=== PATIENT | female | born 1985 | race African-American/Black ===

== ENCOUNTER 2018-03-24 10:27 | Emergency (ER) | payer OTHER ==
[~2018-03-24] VITALS: Ht 154.9 cm; Wt 59.0 kg
[2018-03-24] MEDS ORDERED: NORVASC5 MG PO (10:41)
[2018-03-24] MEDS ORDERED: HYDRALAZINE 2525 M1 PO (10:41)
[2018-03-24 12:41] VITALS: BP 133/94
== END 2018-03-24 12:50 | disposition home or self-care (01) ==
LOC: M.ERS 10:27
DX: F41.0 Panic disorder [episodic paroxysmal anxiety] (principal); I10 Essential (primary) hypertension

== ENCOUNTER 2021-02-24 08:42 | Emergency (ER) | payer OTHER ==
[~2021-02-24] VITALS: Ht 160 cm; Wt 62.6 kg
[~2021-02-24 08:42] MED LIST: HYDRALAZINE 2525 M1 PO; NORVASC5 MG PO
[2021-02-24 10:32] LABS: INFLUENZA A ANTIGEN Negative (Negative); INFLUENZA B ANTIGEN Negative (Negative)
[2021-02-24 10:40] LABS: HEMATOCRIT 33.6 % (37.0-47.0); HEMOGLOBIN 10.5 gm/dL (12.0-15.0); MCH 25.2 pg (26.0-34.0); MCHC 31.3 g/dL (28.0-37.0); MCV 80.5 fL (80.0-100.0); MPV 8.7 fl. (7.2-11.1); RBC 4.17 mil/uL (4.20-5.00); RDW-CV 15.7 % (10.5-14.5); WBC 6.3 thou/uL (4.0-11.0)
[2021-02-24 10:48] LABS: CALCIUM 8.8 mg/dL (8.5-10.1); CREATININE 0.6 mg/dL (0.6-1.3); POTASSIUM 3.8 mmol/L (3.5-5.1)
[2021-02-24 10:53] LABS: URINE BILIRUBIN NEGATIVE (Negative); URINE BLOOD NEGATIVE (Negative); URINE CLARITY CLEAR; URINE COLOR YELLOW; URINE GLUCOSE-RANDOM NEGATIVE (Negative); URINE KETONES NEGATIVE (Negative); URINE LEUKOCYTES-REFLEX TRACE (Negative); URINE NITRITE-REFLEX NEGATIVE (Negative); URINE PROTEIN 1+ (Negative); URINE UROBILINOGEN 0.2 E.U./dl (0.2-1.0)
[2021-02-24 11:30] LABS: SQUAMOUS 4-10 Moderate /LPF (0-3); URINE RBC 0-2 Rare /HPF (0-2); URINE WBC-REFLEX 6-15 Few /HPF (0-5)
[2021-02-24 11:31] LABS: BACTERIA-REFLEX None Seen /HPF (None Seen); CASTS None Seen /LPF (None Seen); CRYSTALS None Seen /LPF (None Seen)
[2021-02-24] MEDS ORDERED: ONDANSETRON ODT4 MG PO (11:37)
[2021-02-24] MEDS ORDERED: MACROBID 100 M100 MG PO (11:37)
[2021-02-24 11:54] VITALS: BP 156/109
== END 2021-02-24 11:55 | disposition home or self-care (01) ==
LOC: M.ERS 08:42
PROVIDERS: Emergency Medicine Emergency Medical Services; Physician Assistant
DX: N39.0 Urinary tract infection, site not specified (principal); Z20.822 Contact with and (suspected) exposure to COVID-19; D64.9 Anemia, unspecified; R11.2 Nausea with vomiting, unspecified; I10 Essential (primary) hypertension; F41.9 Anxiety disorder, unspecified